=== PATIENT | female | born 1975 | race Caucasian/White ===

== ENCOUNTER 2023-04-27 20:56 | Emergency (ER) | payer OTHER ==
[2023-04-27] MEDS ORDERED: Haloperidol Lactate 5 MG/ML SDV IM ONE ×2 (20:57→21:03)
[2023-04-27] MEDS ORDERED: diphenhydrAMINE 50 MG/ML SDV IM ONE (21:03)
[2023-04-27] MEDS ORDERED: diphenhydrAMINE 50 MG/ML SDV ONE (21:04)
[2023-04-27 21:21] LABS: BASOPHILS ABSOLUTE AUTO 0.1 x10-3/uL (0.0-0.1); BASOPHILS PERCENT AUTO 0.6 % (0.2-1.5); EOSINOPHILS ABSOLUTE AUTO 0.3 x10-3/uL (0.0-0.8); EOSINOPHILS PERCENT AUTO 2.9 % (0.6-8.1); HEMATOCRIT 47.8 % (34.2-48.2); HEMOGLOBIN 16.4 g/dL (11.4-15.5); LYMPHOCYTES ABSOLUTE AUTO 3.9 x10-3/uL (1.0-4.4); LYMPHOCYTES PERCENT AUTO 42.5 % (18.4-52.1); MEAN CORPUSCULAR HEMOGLOBIN 31.8 pg (23.9-33.9); MEAN CORPUSCULAR HGB CONC 34.4 g/dL (31.9-34.8); MEAN CORPUSCULAR VOLUME 92.5 fL (76.7-100.5); MEAN PLATELET VOLUME 8.8 fL (7.1-12.4); MONOCYTES ABSOLUTE AUTO 0.4 x10-3/uL (0.3-1.0); MONOCYTES PERCENT AUTO 4.4 % (4.4-15.7); NEUTROPHILS ABSOLUTE AUTO 4.6 x10-3/uL (1.5-6.3); NEUTROPHILS PERCENT AUTO 49.6 % (30.8-76.2); PLATELET COUNT,PLT 209 x10(3)uL (151-488); RED BLOOD CELL COUNT 5.17 x10(6)uL (3.60-5.20); RED CELL DISTRIBUTION WIDTH 13.9 % (12.3-16.5); WHITE BLOOD CELL COUNT,WBC 9.3 x10-3/uL (3.0-10.3)
[2023-04-27 21:23] LABS: BLOOD UREA NITROGEN,BUN 18 mg/dL (7-18); CALCIUM 8.5 mg/dL (8.6-10.2); CARBON DIOXIDE,CO2 24 mmol/L (21-32); CHLORIDE,CL 107 mmol/L (100-110); CREATININE 0.9 mg/dL (0.55-1.02); ESTIMATED GFR 80 mL/min (>60); GLUCOSE RANDOM 108 mg/dL (80-116); POTASSIUM,K 3.4 mmol/L (3.5-5.3); SODIUM,NA 147 mmol/L (135-145)
[2023-04-27 21:29] LABS: A/G RATIO 0.9; ALANINE AMINOTRANSFERASE,ALT 31 U/L (12-36); ALBUMIN 3.3 g/dL (3.5-5.2); ALKALINE PHOSPHATASE 110 IU/L (56-112); ASPARTATE AMNIOTRANSFERASE,AST 29 IU/L (5-25); BILIRUBIN TOTAL 0.2 mg/dL (0.1-1.3); PROTEIN TOTAL,TP 7.1 g/dL (6.0-8.0)
[2023-04-28 05:04] LABS: AMPHETAMINES SCREEN, URINE NEGATIVE (NEGATIVE); BARBITURATE SCREEN,URINE NEGATIVE (NEGATIVE); BENZODIAZEPINES SCREEN,URINE NEGATIVE (NEGATIVE); METHADONE SCREEN, URINE NEGATIVE (NEGATIVE); METHAMPHETAMINE SCREEN, URINE NEGATIVE (NEGATIVE); THC SCREEN,URINE POSITIVE (NEGATIVE)
[2023-04-28 05:05] LABS: BUPRENORPHINE SCREEN,URINE NEGATIVE (NEGATIVE); OXYCODONE SCREEN,URINE NEGATIVE (NEGATIVE); PROPOXYPHENE SCREEN,URINE NEGATIVE (NEGATIVE)
[2023-04-28] MEDS ORDERED: Potassium Chloride 20 MEQ Tab.ER PO ONE (05:30)
== END 2023-04-28 05:44 | disposition home or self-care (01) ==
LOC: EDBD 20:56 → FB.ED 20:56
DX: F10.120 Alcohol abuse with intoxication, uncomplicated (principal); E87.6 Hypokalemia; E88.09 Other disorders of plasma-protein metabolism, not elsewhere classified
CPT/HCPCS: 80053; 80307; 85025; 96372; 99285; A9270; J1200; J1630

== ENCOUNTER 2023-05-22 03:10 | Emergency (ER) | payer OTHER ==
[2023-05-22] MEDS ORDERED: Acetaminophen 500 MG Tab PO ONE (05:59)
== END 2023-05-22 06:17 | disposition home or self-care (01) ==
LOC: FB.ED 03:10
DX: S62.346A Nondisplaced fracture of base of fifth metacarpal bone, right hand, initial encounter for closed fracture (principal); S92.352A Displaced fracture of fifth metatarsal bone, left foot, initial encounter for closed fracture; F10.920 Alcohol use, unspecified with intoxication, uncomplicated; M25.562 Pain in left knee; I10 Essential (primary) hypertension; F17.210 Nicotine dependence, cigarettes, uncomplicated
CPT/HCPCS: 73130-RT; 73630-LT; 99283; A9270-GY